=== PATIENT | female | born 1965 | race Caucasian/White ===

== ENCOUNTER 2017-06-23 17:58 | Day surgery (SDC) | payer OTHER ==
[~2017-06-23] VITALS: Ht 160 cm; Wt 52.0 kg
[~2017-06-23 17:58] MED LIST: LIDOCAINE HCL 1% PF 5 ML SYRINGE OTHER ONE; PHENYLEPH/NS 1000 MCG/10 ML SYR IV ONE; PROPOFOL 200 MG/20 ML AMP IV ONE; SUCCINYLCHOLINE CHLORIDE 100 MG/5 ML SYRINGE IV PUSH ONE
[2017-06-23 18:03] VITALS: BP 150/74; PULSE 62; RESP 18; TEMP 98.9; O2SAT 98
[2017-06-23] MEDS ORDERED: LIDOCAINE VISCOUS 2% SOLN 15 ML UDC PO ONE (18:45)
[2017-06-23] MEDS ORDERED: ALUMINUM/MAGNESIUM/SIMETH 30 ML CUP PO ONE (18:45)
--- NOTE | 2017-06-23 19:02 | PD ---
HPI Chief Complaint: Foreign Body Time Seen by Provider: 18:14 Travel History International Travel<30 days: No Contact w/Intl Traveler<30days: No Traveled to known affect area: No History of Present Illness HPI The patient is a 52-year-old female who presents to the emergency department for possible foreign body to the neck. The patient states she bought boneless chicken and ate it earlier tonight, however, she feels like there is a bone in the chicken. She complains of an abrasion type pain to the left side of the throat that is worse with swallowing. Initially was located in the left upper aspect of the throat, now feels like it is on the left lower aspect of the throat. The patient denies any shortness of breath, does have pain with swallowing. She denies any hemoptysis or hematemesis. Symptoms are moderate. Possibly exacerbated after eating a chicken bone. PFSH Past Medical History Narrative Medical Anxiety Diminished Hearing: No ?: Not Past Surgical History Narrative Surgical Breast augmentation Social History Alcohol Use: No Tobacco Use: No Substance Use: No Allergies-Medications (Allergen,Severity, Reaction): Coded Allergies: No Known Allergies (Unverified , 06/23/17) Reported Meds & Prescriptions Reported Meds & Active Scripts Active No Active Prescriptions or Reported Medications Review of Systems Except as stated in HPI: all other systems reviewed are Neg HENT: Positive: Other (Foreign body sensation to the neck) Cardiovascular: No: Chest Pain or Discomfort Respiratory: No: Shortness of Breath Gastrointestinal: Positive: Other (Foreign body sensation to the neck), No: Nausea, Vomiting, Abdominal Pain Physical Exam Narrative GENERAL: Awake, alert, pleasant 52-year-old female who appears her stated age and is in no acute respiratory distress. SKIN: Focused skin assessment warm/dry. HEAD: Atraumatic. Normocephalic. EYES: Pupils equal and round. No scleral icterus. No injection or drainage. ENT: No nasal bleeding or discharge. Mucous membranes pink and moist. No visible foreign body in the posterior pharynx. No visible blood. NECK: Trachea midline. No JVD. MUSCULOSKELETAL: No obvious deformities. No clubbing. No cyanosis. No edema. NEUROLOGICAL: Awake and alert. No obvious cranial nerve deficits. Motor grossly within normal limits. Normal speech. PSYCHIATRIC: Appropriate mood and affect; insight and judgment normal. Data Data Last Documented VS Vital Signs Date Time Temp Pulse Resp B/P (MAP) Pulse Ox O2 Delivery O2 Flow Rate FiO2 06/23/17 18:03 98.9 62 18 150/74 (99) 98 Orders Orders Al-Mag Hy-Si 40-40-4 Mg/Ml Liq (Mag-Al P (06/23/17 18:45) Lidocaine 2% Viscous (Xylocaine 2% Visco (06/23/17 18:45) Soft Tissue Neck (06/23/17 ) Iv Access Insert/Monitor (06/23/17 20:23) Ecg Monitoring (06/23/17 20:23) Oximetry (06/23/17 20:23) Admit Order (Ed Use Only) (06/23/17 20:25) MDM Medical Decision Making Medical Screen Exam Complete: Yes Emergency Medical Condition: Yes Medical Record Reviewed: Yes Differential Diagnosis Differential diagnosis includes foreign body, globus sensation, pharyngeal abrasion, pharyngeal foreign body, laceration. Narrative Course The patient was administered a GI cocktail and x-ray soft tissue the neck was obtained. The patient was signed out to Dr. Velazco at 7 PM. Diagnosis Primary Impression: Esophageal foreign body Qualified Codes: T18.108A - Unspecified foreign body in esophagus causing other injury, initial encounter Scripts No Active Prescriptions or Reported Meds Condition: Stable Colten Aguero MD Jun 23, 2017 19:02
--- NOTE | 2017-06-23 19:13 | PD ---
Physical Exam Narrative General: The patient is a well-developed well-nourished female in no acute distress. Head and Neck exam: Head is normocephalic atraumatic. Eyes: EOMI, pupils are equal round and reactive to light. Nose: Midline septum with pink mucous membranes Mouth: Dentition unremarkable. Moist mucus membranes. Posterior oropharynx is not erythematous. No tonsillar hypertrophy. Uvula midline. Airway patent. No foreign body is able to be visualized Neck: No palpable lymphadenopathy. No nuchal rigidity. No thyromegaly. Cardiovascular: Regular rate and rhythm without murmurs, gallops, or rubs. Lungs: Clear to auscultation bilaterally. No wheezes, rhonchi, or rales. Abdomen: Soft, without tenderness to palpation in all 4 quadrants of the abdomen. No guarding, rebound, or rigidity. Normal bowel sounds are audible. No tenderness on palpation of McBurney's point Extremities: No clubbing, cyanosis, or edema. Neurologic Exam: Grossly nonfocal. Skin Exam: No rash noted. Intact skin that is warm and dry. Data Data Last Documented VS Vital Signs Date Time Temp Pulse Resp B/P (MAP) Pulse Ox O2 Delivery O2 Flow Rate FiO2 06/23/17 18:03 98.9 62 18 150/74 (99) 98 Orders Orders Al-Mag Hy-Si 40-40-4 Mg/Ml Liq (Mag-Al P (06/23/17 18:45) Lidocaine 2% Viscous (Xylocaine 2% Visco (06/23/17 18:45) Soft Tissue Neck (06/23/17 ) Iv Access Insert/Monitor (06/23/17 20:23) Ecg Monitoring (06/23/17 20:23) Oximetry (06/23/17 20:23) Admit Order (Ed Use Only) (06/23/17 20:25) [facility] Medical Record Reviewed: Yes Supervised Visit with SANGEETHA: No Interpretation(s) Last Impressions Soft Tissue Neck X-Ray 06/23/17 0000 Signed Impressions: Service Date/Time: Friday, June 23, 2017 18:59 - CONCLUSION: 1.4 cm linear calcific density likely related to a chicken bone given the history projecting over the base of the tongue. Pérez Jordan MD Narrative Course During the course of the patient's emergency department visit, the patient's history, examination, and differential diagnosis were reviewed with the patient. The patient was placed on a traffic monitor specialist with oximetry and frequent blood pressure monitoring. The patient had IV access obtained and blood work sent for analysis. The patient was initially seen by Dr. Aguero. Please see his complete history and physical. The patient's case was checked out to me at the conclusion of his shift. The patient represented with a history of while eating chicken feeling like a piece of bone was swallowed with the chicken at approximately 5:45 PM. She reports having a foreign body sensation that is traveled down her neck on the left side. She reports that he continues to be present in the lower aspect of her neck. The patient initially had an x- ray of the soft tissues of the neck ordered to evaluate for foreign body. Dr. Aguero anticipated that if the soft tissue of the neck x-ray was negative we would proceed with a CT scan of the soft tissues of the neck to rule out foreign body. The patient was initially provided a GI cocktail. Radiology studies were reviewed and remarkable for an x-ray of the soft tissues of the neck revealed a 1.4 cm linear calcific density likely related to chicken bone given the history injecting over the base of the tongue region. A call has been placed out to the GI doctor regarding this patient's case. He was able to speak to at approximately 8:24 PM. He plans to take the patient for endoscopy and foreign body removal. He explained that this would be at approximately 10 PM tonight. IV access will be obtained in preparation for medication for sedation for the endoscopy. The patient was updated and was agreeable with the plan of care. Physician Communication Physician Communication The patient's case including history, pertinent physical examination findings, and imaging studies were discussed with Dr. Montana. Diagnosis Primary Impression: Esophageal foreign body Qualified Codes: T18.108A - Unspecified foreign body in esophagus causing other injury, initial encounter Condition: Stable Isabelle Velazco MD Jun 23, 2017 19:13
--- NOTE | 2017-06-23 19:15 | RADRPT ---
EXAM DATE/TIME: 06/23/2017 18:59 [facility] COMPARISON: No previous studies available for comparison. INDICATIONS : Evaluate for foreign body, chicken bone. Pain on left side of neck MEDICAL HISTORY : None. SURGICAL HISTORY : None. ENCOUNTER: Initial ACUITY: 1 day PAIN SCORE: 5/10 LOCATION: Left Soft tissue neck FINDINGS: Two view examination of the soft tissues of the neck demonstrates the hypopharyngeal airway to have a grossly normal configuration. The trachea is midline. There is a 1.4 cm linear calcific density se en over the base of the tongue region. There is degenerative change with disc space narrowing and osteophyte formation at the C5-C6 level an d to a lesser rate at C6-C7 levels. CONCLUSION: 1.4 cm linear calcific density likely related to a chicken bone given the history projecting over the base of the tongue. Pérez Jordan MD on June 23, 2017 at 19:12 Board Certified Radiologist. This report was verified electronically.
--- NOTE | 2017-06-23 23:29 | PD.PROCEDR ---
GI Procedure PROCEDURE PERFORMED Upper endoscopy INDICATION FOR PROCEDURE Patient ingested chicken with bone stuck in her proximal esophagus, verified on x-ray PROCEDURE: The procedure, risks and benefits were discussed with Ms. Mitchell and informed consent was obtained. Anesthesia sedated her with Diprivan. She was placed in the left lateral decubitus position. EGD: The Pentax videoscope was introduced through the oropharynx and advanced to the second portion of the duodenum under direct visualization. Retroflexion was performed in the stomach. ESTIMATED BLOOD LOSS: None SPECIMENS REMOVED: None COMPLICATIONS: None IMPRESSION: Significant scratch in the larynx consistent with hard object such as bone passing Also there is another scratch in the proximal esophagus, otherwise esophagus was normal Stomach was full of food residual could not identify if there is a bone and that residual food Duodenum normal Most likely she passed the bone with scratch in the larynx and proximal esophagus giving the patient the feeling that there is something still there PLAN: Will obtain neck soft tissue x-ray to compare it to the one that was done earlier to make sure that the bone was passed soft diet Chew food well Huy Montana MD Jun 23, 2017 23:29
--- NOTE | 2017-06-24 00:04 | RADRPT ---
EXAM DATE/TIME: 06/24/2017 00:28 [facility] COMPARISON: No previous studies available for comparison. INDICATIONS : Foreign body. MEDICAL HISTORY : None. SURGICAL HISTORY : None. ENCOUNTER: Initial ACUITY: 1 day PAIN SCORE: Non-responsive. LOCATION: Neck. FINDINGS: There is an endotracheal tube with tip at the thoracic inlet. air sampling and monitoring leads are noted. No oth er radiopaque foreign bodies are seen. CONCLUSION: No unexpected foreign body. Patient is intubated. Pérez Burton MD on June 24, 2017 at 0:03 Board Certified Radiologist. This report was verified electronically.
[2017-06-24 00:30] VITALS: BP 117/72; PULSE 78; RESP 19; O2SAT 100
[2017-06-24] MEDS ORDERED: DO NOT ADM ANY ANTICOAGULANT DRUGS PRN (00:30)
[2017-06-24 00:36] VITALS: TEMP 97.5
--- NOTE | 2017-06-24 09:14 | MB ---
cc: Huy Montana MD DATE: 06/23/2017 REASON FOR REFERRAL: Dysphagia, possible foreign body. Thank you for the consultation. HISTORY OF PRESENT ILLNESS: This is a 52-year-old lady who was in usual good health, was eating grilled chicken, the patient felt that one of the pieces had bone that stuck in her throat and going down into her proximal esophagus, where she feels in her neck. X-ray showed possible bone in the proximal esophagus. The patient feels some discomfort and she feels that she is tasting some blood from time to time with her saliva. The patient denied any chest pain, shortness of breath, but she is very uncomfortable, this was a few hours ago when she was eating. Never had any problems swallowing before and never had any dysphagia before. SOCIAL HISTORY: Negative for tobacco. Positive for alcohol. PAST MEDICAL HISTORY: 1. She had a breast implant and she had intraductal papilloma according to her. 2. She has anxiety. ALLERGIES: NO KNOWN DRUG ALLERGIES. FAMILY HISTORY: Noncontributory. REVIEW OF SYSTEMS: All 12-point negative except HPI. PHYSICAL EXAMINATION: GENERAL: Alert, oriented, in no acute distress. VITAL SIGNS: Stable. HEENT: Pupils round, reactive to light. NECK: Supple. CHEST: Clear to auscultation and percussion. CARDIAC: Regular rate and rhythm. No murmur or gallop. ABDOMEN: Soft, nondistended. Positive bowel sounds. EXTREMITIES: No edema, clubbing or cyanosis. NEUROLOGIC: Intact. No focal abnormality. PSYCHIATRIC: Psychologically appropriate. IMAGING: The patient has an x-ray which showed 1.4 cm linear calcification density, most likely related to chicken bone over the base of her tongue. ASSESSMENT: This is a 52-year-old lady with foreign body ingestion most likely chicken bone. The patient will need upper endoscopy with possible retrieval. PLAN: I discussed with the patient, the procedure and complications including perforation, bleeding, infection. The patient is aware of that and willing to go through the procedure. We will plan on doing this on an emergency basis tonight. Huy Montana MD /QUINTEN , 10:42 PM , 12:02 AM
== END 2017-06-24 00:50 | disposition home or self-care (01) ==
LOC: NEPC 17:58 → HSDC 20:27
PROVIDERS: ATTEND Hospitalist
DX: T18.128A Food in esophagus causing other injury, initial encounter (principal); F41.9 Anxiety disorder, unspecified
CPT/HCPCS: 00731; 43247; 70360; 99283; J0330; J2370